=== PATIENT | female | born 1930 | race Caucasian/White ===

== ENCOUNTER 2017-07-10 08:41 | Emergency (ER) | payer MEDICARE, OTHER ==
[~2017-07-10] VITALS: Ht 170.1 cm; Wt 67.6 kg
[~2017-07-10 08:41] MED LIST: ASPIRIN81 M1 PO; KEFLEX500 MG PO; LISINOPRIL20 MG PO; PRAVACHOL80 MG PO; VITAMIN D5000 IU PO; VOLTAREN50 MG PO
[2017-07-10] MEDS ORDERED: NAPROSYN500 MG PO (10:41)
[2017-07-10] MEDS ORDERED: CLINDAMYCIN150 MG PO (10:41)
[2017-07-10] MEDS ORDERED: NORCO 5-325 TA1 EACH PO (10:41)
== END 2017-07-10 11:11 | disposition home or self-care (01) ==
LOC: ED 08:41
DX: S82.64XA Nondisplaced fracture of lateral malleolus of right fibula, initial encounter for closed fracture (principal); R03.0 Elevated blood-pressure reading, without diagnosis of hypertension; Z90.89 Acquired absence of other organs; Z79.82 Long term (current) use of aspirin; Z79.899 Other long term (current) drug therapy; W22.8XXA Striking against or struck by other objects, initial encounter; Y93.89 Activity, other specified; Y92.89 Other specified places as the place of occurrence of the external cause; Y99.9 Unspecified external cause status